=== PATIENT | male | born 1950 | race Caucasian/White ===

== ENCOUNTER → 2018-05-22 | Outpatient (CLI) | payer MEDICARE, BC ==
[~2018-05-22] MED LIST: None at this time
[2018-05-22 09:08] LABS: BASOPHILS # (AUTO) 0.04 x10^3/uL (0-0.1); BASOPHILS % (AUTO) 1 % (0-1); EOSINOPHILS # (AUTO) 0.21 x10^3/uL (0-0.4); EOSINOPHILS % (AUTO) 3 % (1-7); LYMPHOCYTES % (AUTO) 34 % (22-44); MD NO; MEAN CORPUSCULAR HEMOGLOBIN 34.6 pg (27.5-34.5); MEAN CORPUSCULAR HGB CONC 33.7 g/dL (33.2-36.2); MEAN CORPUSCULAR VOLUME 102.6 fL (81-97); MEAN PLATELET VOLUME 7.9 fL (7.4-10.4); MONOCYTES # (AUTO) 0.52 x10^3/uL (0.2-0.8); MONOCYTES % (AUTO) 8 % (2-9); NEUTROPHILS # (AUTO) 3.67 x10^3/uL (1.8-6.8); NEUTROPHILS % (AUTO) 55 % (42-75); PLATELET COUNT 250 x10^3/uL (130-400); RED BLOOD COUNT 4.81 x10^6/uL (4.38-5.82); RED CELL DISTRIBUTION WIDTH 13.5 % (9.4-14.8)
[2018-05-22 09:21] LABS: ALANINE AMINOTRANSFERASE 50 U/L (12-78); ALBUMIN 3.8 g/dL (3.4-5.0); CALCIUM 8.4 mg/dL (8.5-10.1); CHLORIDE 109 mmol/L (98-107); CREATININE 1.33 mg/dL (0.7-1.3)
[2018-05-22 09:23] LABS: ALKALINE PHOSPHATASE 46 U/L (45-117); BILIRUBIN,TOTAL 0.8 mg/dL (0.2-1.0); TOTAL PROTEIN 6.7 g/dL (6.4-8.2)
[2018-05-22 09:35] LABS: ANION GAP 3 mmol/L (5-15)
== END | disposition home or self-care (01) ==
LOC: STAR 08:12
PROVIDERS: ATTEND Urology
DX: Z01.818 Encounter for other preprocedural examination (principal); C61 Malignant neoplasm of prostate
CPT/HCPCS: 36415; 80053; 85025; 93005

== ENCOUNTER 2018-06-01 21:24 | Emergency (ER) | payer MEDICARE, BC ==
[~2018-06-01] VITALS: Ht 175.3 cm; Wt 86.6 kg
[~2018-06-01 21:24] MED LIST changes: +HYDR-3240 PO
[2018-06-01 21:27] VITALS: BP 170/99
--- NOTE | 2018-06-01 23:07 | NUR ---
Discharge instructions discussed with patient including when to return to emergency department, patient verbalizes understanding. Catheter draining pink urine, patient reports relief from bladder pressure.
== END 2018-06-01 23:09 | disposition home or self-care (01) ==
LOC: ED 23:03
DX: T83.091A Other mechanical complication of indwelling urethral catheter, initial encounter (principal)
CPT/HCPCS: 99284

== ENCOUNTER 2018-06-06 08:35 | Outpatient (CLI) | payer MEDICARE, BC | END 2018-06-06 23:59 | disposition home or self-care (01) | LOC: RAD 08:35 | PROVIDERS: ATTEND Urology | DX: C61 Malignant neoplasm of prostate (principal) | CPT/HCPCS: 51600; 74430 ==